=== PATIENT | female | born 2000 | race Caucasian/White ===

== ENCOUNTER 2023-02-03 15:17 | Emergency (ER) | payer BC, SELFPAY | END 2023-02-03 17:06 | disposition home or self-care (01) | LOC: ERS 15:17 | DX: R60.0 Localized edema (principal); R20.2 Paresthesia of skin ==

== ENCOUNTER 2023-04-21 21:58 | Observation (INO) | payer OTHER ==
[2023-04-21 23:11] LABS: #Basophils 0.1 thou/uL (0.0-0.2); #Eosinphils 0.4 thou/uL (0.0-0.7); #Monocytes 0.8 thou/uL (0.11-0.59); #Neutrophils 7.7 thou/uL (1.40-6.50); %Basophils 0.8 % (0.0-1.0); %Eosinophils 2.8 % (0.0-10.0); %Neutrophils 62.2 % (42.0-75.0); Hematocrit 41.8 % (36.0-47.0); Hemoglobin 14.5 g/dL (12.0-16.0); Mean Corpuscular HGB CONC 34.7 g/dL (32.0-36.0); Mean Corpuscular Hemoglobin 32.7 pg (27.0-31.0); Mean Corpuscular Volume 94.1 fl (78.0-98.0); Mean Platelet Volume 10.5 fL (7.4-10.4); Platelet Count 339 10x3/uL (130-400); RBC Distribution Width 11.5 % (11.5-14.5); Red Blood Cell (RBC) Count 4.44 mill/uL (4.20-5.40); White Blood Cell (WBC) Count 12.4 10x3/uL (4.8-10.8)
[2023-04-21 23:20] LABS: BHCG - Serum Negative (NEGATIVE); Pregs Control Background? CLEAR/WHITE (CLR/WHITE); Pregs Control Bar Appear? YES (CONTROL BAR)
[2023-04-22] LABS: Chloride 106 mmol/L (98-107); Potassium 3.7 mmol/L (3.5-5.1); Sodium 140 mmol/L (136-145)
[2023-04-22 00:01] LABS: Calcium 10.1 mg/dL (7.8-10.44)
[2023-04-22 00:02] LABS: Globulin 2.8 g/dL (2.4-3.5); Protein, Total 7.8 g/dL (6.0-8.3)
[2023-04-22 00:03] LABS: Anion Gap 14 mmol/L (10-20); Bilirubin, Total 0.3 mg/dL (0.2-1.2); Carbon Dioxide 24 mmol/L (22-29)
[2023-04-22 00:05] LABS: Calc. Creatinine Clearance 0 mL/min (70-130); Estimated GFR 115
[2023-04-22 00:07] LABS: AST (SGOT) 23 U/L (5-34)
[2023-04-22 00:12] LABS: Alkaline Phosphatase 80 U/L (40-110); BUN (Urea Nitrogen) 14 mg/dL (7.0-18.7); Critical Call Chemistry LAB; Glucose 81 mg/dL (70-105)
[2023-04-22 00:13] LABS: ALT (SGPT) 36 U/L (8-55); Magnesium 2.1 mg/dL (1.6-2.6)
[2023-04-22] MEDS ORDERED: Lorazepam 2 MG/ML VIAL SLOW IVP PRN (03:49)
[2023-04-22] MEDS ORDERED: Ondansetron ODT 4 MG TAB PO PRN (03:50)
[2023-04-22] MEDS ORDERED: Calcium Carbonate 500 MG ChewTAB PO PRN (03:50)
[2023-04-22] MEDS ORDERED: levETIRAcetam 500 MG TAB PO SCH ×3 (07:45→21:00)
[2023-04-22] MEDS ORDERED: Magnevist 469MG/ML 20 ML VIAL ONE (09:32)
== END 2023-04-22 14:21 | disposition home or self-care (01) ==
LOC: ERS 21:58 → ERHOLD 04-22 02:30
PROVIDERS: ADMIT Student in an Organized Health Care Education/Training Program; ATTEND Nurse Practitioner Family
DX: G40.909 Epilepsy, unspecified, not intractable, without status epilepticus (principal); J45.909 Unspecified asthma, uncomplicated; D72.829 Elevated white blood cell count, unspecified; Z88.1 Allergy status to other antibiotic agents; Z88.8 Allergy status to other drugs, medicaments and biological substances; Z79.899 Other long term (current) drug therapy
CPT/HCPCS: 36415; 70450; 70553; 80053; 80177; 83735; 84146; 84703; 85025; 93005; A9579; G0378